=== PATIENT | female | born 1950 | race Caucasian/White ===

== ENCOUNTER → 2017-01-01 | Outpatient (CLI) | payer MEDICARE ==
--- NOTE | 2017-01-01 12:19 | MM ---
Reason for exam: follow-up at short interval from prior study. Last mammogram was performed 8 months ago. History: Patient is postmenopausal and has history of breast cancer at age 65. Mastectomy of the right breast, June 30, 2016. Malignant MG stereo VAD BX addl RT of the right breast, June 02, 2016. Malignant MG stereo VAD BX RT of the right breast, June 02, 2016. Cancelled Left US Needle Biopsy of the left breast, March 07, 2010. Benign US left guided VAD of the left breast, July 26, 2009. Benign excisional biopsy of the right breast, 1994. Took hormonal contraceptives for 4 years beginning at age 21. Took estrogen for 7 years beginning at age 47. Physical Findings: Nurse did not find any significant physical abnormalities on exam. MG 3D Diag Mammo W/Cad LT CC and MLO view(s) were taken of the left breast. Prior study comparison: April 23, 2016, right breast MG 3d work up w/cad RT. April 14, 2016, bilateral MG 3d screening mammo w/cad. The breast tissue is heterogeneously dense. This may lower the sensitivity of mammography. There is no discrete abnormality. No significant new findings when compared with previous films. These results were verbally communicated with the patient and result sheet given to the patient on 01/01/17. ASSESSMENT: Negative, BI-RAD 1 RECOMMENDATION: Follow-up diagnostic mammogram of the left breast in 1 year.
== END | disposition home or self-care (01) ==
LOC: RADMAMWWP 10:31
PROVIDERS: ATTEND Surgery
DX: C50.911 Malignant neoplasm of unspecified site of right female breast (principal)
CPT/HCPCS: G0206; G0279

== ENCOUNTER 2017-01-05 07:18 | Day surgery (SDC) | payer MEDICARE ==
[2017-01-04 08:49] VITALS: BMI 33.6
[~2017-01-05 07:18] MED LIST: DEXAMETHASONE SOD PHOSPHATE 10 MG/ML 1 ML VIAL IV ONE; HEPARIN SODIUM,PORCINE 5,000 UNIT/ML 1 ML VIAL SQ ONE; HYDROmorphone 1 MG/ML 1 ML SYRINGE IVP PRN; LACTATED RINGERS 1,000 ML IV SCH; MIDAZOLAM 2 MG/2 ML VIAL IV PRN; Pre Op ABX Message 1 EACH MISC MISCELLANE ONE
[2017-01-05] MEDS: ONDANSETRON 4 MG/2 ML VIAL IVP ONE ×2 (08:02→12:52)
[2017-01-05] MEDS ORDERED: SCOPOLAMINE 1.5MG/72HR PATCH TRANSDERM ONE (08:02)
[2017-01-05] MEDS ORDERED: HEPARIN SODIUM,PORCINE 5,000 UNIT/ML 1 ML VIAL SQ ONE (08:05)
--- NOTE | 2017-01-05 08:08 | P.PN ---
Progress Note - Text Patient had repeat left breast mammogram which reportedly was benign. This was performed last week 01/01/2017.
[2017-01-05] MEDS ORDERED: KETOROLAC 30 MG/ML 1 ML VIAL ONE (09:05)
[2017-01-05] MEDS ORDERED: NEOSTIGMINE 1 MG/ML 10 ML VIAL ONE (09:05)
[2017-01-05] MEDS ORDERED: fentaNYL (PF) 50 MCG/ML 2 ML AMP ONE (09:05)
[2017-01-05] MEDS ORDERED: PROPOFOL 10 MG/ML 20 ML VIAL IV ONE (09:05)
[2017-01-05] MEDS ORDERED: LIDOCAINE 1% INJ 10MG/ML (20 ML MDV) ONE (09:05)
[2017-01-05] MEDS ORDERED: ONDANSETRON 4 MG/2 ML VIAL ONE (09:05)
[2017-01-05] MEDS ORDERED: GLYCOPYRROLATE 0.2 MG/ML 2 ML VIAL ONE (09:05)
[2017-01-05] MEDS ORDERED: KETAMINE 10 MG/ML 20 ML VIAL ONE (09:05)
[2017-01-05] MEDS ORDERED: MIDAZOLAM 2 MG/2 ML VIAL ONE (09:05)
[2017-01-05] MEDS ORDERED: SUCCINYLCHOLINE CHLORIDE 100 MG/5 ML SYR IV ONE (09:05)
[2017-01-05] MEDS ORDERED: ePHEDrine 50 MG/ML 1 ML AMP ONE (09:05)
[2017-01-05] MEDS ORDERED: ACETAMINOPHEN IV (For NPO) 1,000 MG/100 ML VIAL ONE (09:05)
[2017-01-05] MEDS ORDERED: diphenhydrAMINE 50 MG/ML 1 ML VIAL ONE (09:05)
[2017-01-05] MEDS ORDERED: ROCURONIUM BROMIDE 10 MG/ML 10 ML VIAL IV ONE (09:05)
[2017-01-05] MEDS ORDERED: SODIUM CHLORIDE 0.9% 50 ML with ceFAZolin 2,000 MG IV ONE ×2 (09:25)
[2017-01-05] MEDS ORDERED: LACTATED RINGERS 1,000 ML IV ONE ×2 (09:25→10:45)
[2017-01-05] MEDS ORDERED: NALOXONE 0.4 MG/ML 1 ML VIAL IV PRN (10:28)
[2017-01-05] MEDS ORDERED: ONDANSETRON 4 MG/2 ML VIAL IVP PRN (10:28)
[2017-01-05] MEDS ORDERED: KETOROLAC 30 MG/ML 1 ML VIAL IVP PRN (10:28)
--- NOTE | 2017-01-05 10:28 | P.OP ---
Date of Procedure: 01/05/17 Preoperative Diagnosis: Severe fibrocystic disease left breast right breast cancer Postoperative Diagnosis: Same Procedure(s) Performed: Prophylactic left breast mastectomy and reconstruction Implants: Anesthesia: ROXANNA Surgeon: Alejandra Dennis Estimated Blood Loss (ml): 25 IV fluids (ml): 1,600 Pathology: other (Left breast) Condition: stable Disposition: PACU Indications for Procedure: Patient with severe fibrocystic disease left breast patient right breast cancers status post prior right mastectomy Operative Findings: Left breast is dense tissue Description of Procedure: Patient was taken to the operating room and following induction of general anesthesia the left breast and chest was prepped and draped in a sterile fashion. A circumareolar incision was made. This was carried through the skin and subcutaneous tissue down to the breast tissue. Circumferential dissection was performed removing the breast tissue from the skin. This was carried down to the pectoralis major muscle superiorly andcarried down the chest wall medially and inferiorly. The lateral dissection was carried down to the area of the axilla. Following this the breast was taken from medial to lateral off the muscle of the chest wall. Hemostasis was attained using electrocautery device and the LigaSure. The tissues were dissected laterally using the LigaSure from the area of the axilla. After assured that hemostasis was attained the wound was well irrigated. All instrument and sponge counts were correct at the end of this procedure. Dr. Cardenas then entered for reconstruction of the breast..
[2017-01-05] MEDS ORDERED: LACTATED RINGERS 1,000 ML IV SCH (10:45)
[2017-01-05] MEDS: fentaNYL (PF) 50 MCG/ML 20 ML VIAL IVP PRN ×2 (11:51→12:04)
[2017-01-05] MEDS: MORPHINE SULFATE 4 MG/ML SYRINGE IVP ONE ×4 (12:34→12:42)
[2017-01-05] MEDS: MORPHINE SULFATE 10 MG/ML SYRINGE IVP ONE ×3 (12:56→13:23)
[2017-01-05] MEDS ORDERED: ACETAMINOPHEN IV (For NPO) 1,000 MG in EMPTY BAG 1 BAG IVPB ONE (13:00)
--- NOTE | 2017-01-05 14:06 | OP ---
DATE OF SERVICE: SURGEON: YUNI BENNETT MD KINDERGARTEN INSTRUCTIONAL ASSISTANT: PREOPERATIVE DIAGNOSIS: Acquired loss, left breast. POSTOPERATIVE DIAGNOSES: Acquired loss, left breast. OPERATION: 1. Immediate reconstruction left breast following mastectomy with insertion of tissue digital research analyst and subsequent outpatient expansion. 2. Implantation reconstructive graft for left breast reconstruction. ANESTHESIA: ESTIMATED BLOOD LOSS: SPECIMENS REMOVED: COMPLICATIONS: OPERATIVE FINDINGS: OPERATIVE INDICATIONS: The patient is a 66-year-old female who is to undergo prophylactic left mastectomy. She has right breast cancer and has undergone a prior right mastectomy with tissue digital research analyst style reconstruction. The patient desires breast reconstruction for the left side we performed immediately following her mastectomy procedures elected upon a tissue digital research analyst style technique. She understands the potential risks and complications of surgery and has requested I perform the surgery. OPERATIVE PROCEDURE SUMMARY: The patient is seen in presurgical area. Markings made, procedure reviewed, all questions answered. She was transported to the operating room where she was placed in supine position. Following induction of general endotracheal anesthesia, the patient was prepped and draped in the usual fashion. Dr. Dennis and her team proceeded with left simple mastectomy through a circumareolar approach. Once the procedure was completed, I was contacted began my portion of the procedure. The patient was under general endotracheal anesthesia in the supine position. All sponge and needle counts from the prior procedure were correct. There was no active bleeding at the mastectomy site. Irrigation was performed. The pectoralis major muscle was identified where the muscle joined the chest wall in the lateral aspect, loose areolar connective tissue divided with cautery here allowing entering into the potential plane between the pectoralis major and minor muscles, which were bluntly developed. All medial attachment fibers of the pectoralis major muscle to ribs were released with cautery and all inferior attachments were released with cautery. There were several rents or tears within the muscle and it was quite attenuated. Additional muscle tissue was required for reconstructive coverage. Inferior medially, rectus abdominis muscle and fascia, inferior laterally external abdominal oblique muscle and fascia, and laterally serratus anterior muscle and fascia were elevated through this approach. Due to the muscle tears and significant attenuation, SurgiMend was now opened on the field, as this will be required to buttress the reconstructive tissue present. The SurgiMend, soaked at room temperature saline. The cavity was irrigated. Hemostasis was excellent. The cavity was sized. A tissue digital research analyst opened on the field after changing gloves. The tissue expanders [place] model, reference # XEZR001II, serial #[id number]. The device was only handled by the surgeon. All air was extracted from the device; 50 mL of 0.9 normal saline instilled and the digital research analyst was maintained in saline bath while the SurgiMend was now inset in an inferior sling orientation, for the reconstruction. Medially and inferiorly the SurgiMend was inset to the muscle cuff using interrupted and short running 3-0 Vicryl. The digital research analyst was now inserted deep to the muscle flap tissue. SurgiMend advanced over the inferior aspect of the digital research analyst deep to the muscle and the muscle advanced in a caudad fashion providing complete coverage and buttress and this also buttressed the attenuated muscle present. All the SurgiMend and the muscle flaps were then inset to each other where needed using interrupted and short running 3-0 Vicryl. Complete coverage was obtained. Irrigation was performed. Excellent hemostasis present. A #19 round Goyo channel drains was opened on the field and inserted in the surgical field, brought through a separate stab incision left anterolateral chest wall and sutured in place with 2-0 Prolene. The drains connected to closed bulb suction. The mastectomy circumareolar incision was now closed in a pursestring fashion using deep dermal 2-0 Prolene suture followed by finer approximation of the epidermal edges with interrupted 4-0 Monocryl. The surgical field was cleansed with saline, dried, and postoperative bandages placed using 4 x 4's, Kerlix gauze secured with 3M Medipore tape. The drain was patent. The patient was then awakened from anesthetic, extubated and transferred to the recovery room in good condition with stable vital signs. There were no complications.
[2017-01-05] MEDS: MORPHINE SULFATE 4 MG/ML SYRINGE IVP PRN ×2 (14:41→19:42)
[2017-01-05] MEDS ORDERED: HYDROcodone/APAP 5-325MG 1 EACH TAB PO PRN (16:57)
[2017-01-05] MEDS: DEXTROSE 5%-0.45% NACL 1,000 ML IV SCH (17:12)
[2017-01-05] MEDS: ceFAZolin 1,000 MG in DEXTROSE/WATER 1 50ML.BAG IVPB SCH ×2 (17:43→23:52)
[2017-01-05] MEDS: FAMOTIDINE 20 MG TAB PO SCH (19:43)
[2017-01-05] MEDS: LISINOPRIL 20 MG TAB PO SCH (20:45)
[2017-01-06] MEDS: HYDROcodone/APAP 5-325MG 1 EACH TAB PO PRN ×5 (01:17→19:04)
[2017-01-06] MEDS: DEXTROSE 5%-0.45% NACL 1,000 ML IV SCH ×3 (05:57→19:07)
[2017-01-06] MEDS: ceFAZolin 1,000 MG in DEXTROSE/WATER 1 50ML.BAG IVPB SCH ×3 (05:57→17:44)
[2017-01-06] MEDS ORDERED: LISINOPRIL 20 MG TAB PO SCH (09:00)
[2017-01-06] MEDS ORDERED: FLECAINIDE 50 MG TAB PO SCH (09:00)
[2017-01-06] MEDS: FAMOTIDINE 20 MG TAB PO SCH ×2 (09:16→20:56)
[2017-01-06] MEDS: LISINOPRIL 20 MG TAB PO SCH ×2 (09:16→20:59)
[2017-01-06] MEDS ORDERED: SODIUM CHLORIDE 0.9% 500 ML IV ONE (09:57)
--- NOTE | 2017-01-06 11:56 | P.PN ---
Subjective Seen and evaluated with the attending patient is postop on January 05 prophylactic left breast mastectomy and reconstruction done. Patient has history of severe fibrocystic disease left breast history of right breast cancer. Patient continues to report having surgical pain at the muscle site involving the left breast. A Celestine-Vasquez drain in the left breast serous drainage noted in the bulb no redness to the breast soft slight surgical tenderness noted Patient states pain medication has been effective for pain control Preop the patient did have a repeat left breast mammogram which was reported as benign this was done on January 01. Objective - Vital Signs Vital signs: Vital Signs Temp 97.0 F L 01/06/17 08:15 Pulse 72 01/06/17 08:15 Resp 16 01/06/17 08:15 BP 108/44 01/06/17 08:15 Pulse Ox 98 01/06/17 08:15 Intake & Output 01/05/17 01/06/17 01/06/17 18:59 06:59 18:59 Intake Total 2980 1200 Output Total 500 30 28 Balance 2480 1170 -28 Weight 86.183 kg Intake: IV 2950 Oral 30 1200 Output: Drainage 50 30 28 Left Chest 50 30 28 Urine 250 Estimated Blood Loss 200 Other: Voiding Method Toilet Toilet # Voids 1 2 - Exam Physical exam 66-year-old female resting in bed pleasant cooperative oriented 3 Lungs essentially clear adequate air movement on room air Heart S1-S2 audible and regular denying chest pain Chest left breast Celestine-Vasquez drain in place soft surgical tenderness noted no redness at surgical site Abdomen soft nontender reports no nausea vomiting Extremities no evidence of edema to the upper or lower extremities Assessment and Plan Plan: Impression Postop to December prophylactic left breast mastectomy with reconstruction due to severe fibrocystic disease History of right breast cancer A recent mammogram 01/01/2017 reported the benign Plan Continue postop surgical care as ordered dressing over surgical site to the left breast Pain control Resume home meds as appropriate DVT and GI prophylaxis The above dictated assessment and findings were discussed with dr mere Anen and the plan of care have been dictated as directed. Sara Sharif nurse practitioner acting as a scribe for dr wilton severino.
--- NOTE | 2017-01-06 13:36 | P.CONS ---
History of Present Illness - Reason for Consult Consult date: 01/06/17 Medical management Requesting physician: Alejandra Dennis - Chief Complaint Post left mastectomy - History of Present Illness This is a 66-year-old female one of my patient with a previous medical history significant for hypertension and hypertensive cardiovascular disease with left ventricular hypertrophy, hyperlipidemia, supraventricular tachycardia, was diagnosed with ductal carcinoma in situ(DCIS) as a routine breast examination with mammography that showed significant calcification that led to the core biopsy ultrasound-guided and that came back positive she is scheduled to go for a skin sparing right mastectomy with reconstruction by Dr. Marito Hester and Dr. Stauffer, this was done in June of this year, patient suddenly had a long conversation with her project specialist oncologist Dr. Sanford and she elected to go for left mastectomy as a prevention for breast cancer, and she underwent a left mastectomy that was done successfully by Dr. Dennis yesterday and we were asked to see the patient for medical management. Patient is sitting up in the bed in no apparent distress, she was feeling a bit dizzy in the morning, her blood pressure was a bit low, we held her lisinopril for the next 24 hours, we will continue with IV fluid resuscitation, monitor the patient very closely for the next 24 hours. Patient has no chest pain, shortness of breath, she has no orthopnea, PND, she has no pleurisy, she has no fever, chills, she has no abdominal pain, nausea, vomiting, or diarrhea. Review of Systems Constitutional: Denies anorexia, Denies chronic headaches, Denies lethargy, Denies malaise, Denies weight gain, Denies weight loss Eyes: denies blurred vision, denies bulging eye, denies decreased vision, denies diplopia, denies discharge Ears: deny: decreased hearing Ears, nose, mouth and throat: Denies dysphagia, Denies neck lump, Denies sore throat Cardiovascular: Reports high blood pressure, Denies chest pain, Denies decreased exercise tolerance, Denies dyspnea on exertion, Denies paroxysmal nocturnal dyspnea, Denies phlebitis, Denies rapid heart beat, Denies shortness of breath Respiratory: Denies congestion, Denies cough, Denies cough with sputum, Denies home oxygen, Denies sleep apnea, Denies snoring, Denies wheezing Gastrointestinal: Denies abdominal pain, Denies bloating, Denies BRBPR, Denies change in bowel habits, Denies excessive gas, Denies melena, Denies nausea, Denies vomiting Genitourinary: Denies dysuria, Denies urgency Menstruation: Reports postmenopausal Musculoskeletal: Denies myalgias Musculoskeletal: absent: ankle pain, ankle stiffness, ankle swelling, elbow pain , elbow stiffness, elbow swelling, foot pain, foot stiffness, foot swelling, hand pain, hand stiffness, hand swelling, hip pain, hip stiffness, hip swelling , knee pain, knee stiffness, knee swelling, shoulder pain, shoulder stiffness, shoulder swelling, wrist pain, wrist stiffness, wrist swelling Integumentary: Denies pruritus, Denies rash Neurological: Denies numbness, Denies weakness Psychiatric: Denies anxiety, Denies depression Endocrine: Denies fatigue, Denies weight change Past Medical History Past Medical History: Cancer, Hypertension Additional Past Medical History / Comment(s): BREAST CANCER, PVC NOT SVT PER PT History of Any Multi-Drug Resistant Organisms: None Reported Past Surgical History: Adenoidectomy, Appendectomy, Breast Surgery, Cholecystectomy, Hysterectomy, Orthopedic Surgery, Tonsillectomy Additional Past Surgical History / Comment(s): COLONOSCOPY. RT BREAST BX. RT KNEE SCOPE, 06-30-16 RT MASECTOMY,SENTINAL NODE /RECONSTRUCTION. CTR-BILAT Past Anesthesia/Blood Transfusion Reactions: Motion Sickness, Postoperative Nausea & Vomiting (PONV) Past Psychological History: Anxiety Additional Psychological History / Comment(s): ANXIOUS REGARDING CURRENT CONDITION. Was living in [place] but has relocated permanently back to [place]. She has been retired. No experience. No animal exposures or recent travels Smoking Status: Former smoker Past Alcohol Use History: Occasional Additional Past Alcohol Use History / Comment(s): STARTED SMOKING AT AGE 17, QUIT 1998, SMOKED 2 PPD Past Drug Use History: None Reported - Past Family History Mother Family Medical History: Coronary Artery Disease (CAD) Additional Family Medical History / Comment(s): FALL-HEAD INJURY Father Family Medical History: Cancer, Diabetes Mellitus Sister(s) Family Medical History: No Reported History Brother(s) Family Medical History: No Reported History Daughter(s) Family Medical History: No Reported History Son(s) Family Medical History: No Reported History Medications and Allergies Home Medications Medication Instructions Recorded Confirmed Type Enalapril [Vasotec] 20 mg PO BID 06/29/16 01/05/17 History Flecainide Acetate [Tambocor] 100 mg PO QAM 06/29/16 01/05/17 History Letrozole [Femara] 2.5 mg PO HS 01/04/17 01/05/17 History Allergies Allergy/AdvReac Type Severity Reaction Status Date / Time adhesive tape AdvReac RASH, SKIN Verified 01/05/17 07:51 TEARS hydromorphone [From Dilaudid] AdvReac VERY DIZZY Verified 01/05/17 07:51 AND CONFUSED neomycin AdvReac MAKES Verified 01/05/17 07:51 WOUND WORSE PER PT Physical Exam Vitals: Vital Signs Temp Pulse Pulse Resp BP Pulse Ox 01/06/17 08:15 97.0 F L 72 16 108/44 98 01/06/17 00:00 16 01/05/17 23:40 98.7 F 64 16 125/72 95 01/05/17 20:30 97.1 F L 77 16 125/50 97 01/05/17 17:10 86 16 118/59 95 01/05/17 16:10 93 16 130/61 94 L 01/05/17 15:29 91 16 126/53 94 L 01/05/17 14:59 94 127/62 97 01/05/17 14:39 95 125/51 97 01/05/17 14:05 89 120/58 97 01/05/17 13:50 96.9 F L 93 16 121/65 97 01/05/17 13:15 82 16 145/63 97 01/05/17 13:00 77 16 155/67 98 01/05/17 12:45 87 16 164/72 98 01/05/17 12:30 91 16 154/67 95 01/05/17 12:15 85 16 158/65 99 Intake and Output 01/05/17 01/06/17 01/06/17 22:59 06:59 14:59 Intake Total 600 600 Output Total 60 28 Balance 540 600 -28 Intake: Oral 600 600 Output: Drainage 60 28 Left Chest 60 28 Other: Voiding Method Toilet # Voids 2 2 Weight 86.183 kg - Constitutional General appearance: no acute distress - EENT Eyes: anicteric sclerae, EOMI, PERRLA, no ptosis, no scleral icterus, normal appearance ENT: hearing grossly normal, NA/AT, normal oropharynx, no thrush Ears: bilateral: normal - Neck Neck: no lymphadenopathy, normal ROM, no rigidity, no stridor, no thyromegaly Carotids: bilateral: upstroke normal Thyroid: bilateral: normal size - Respiratory Respiratory: bilateral: diminished, negative: dullness, rales, rhonchi, wheezing , prolonged expiration, prolonged inspiration - Cardiovascular Rhythm: regular Heart sounds: normal: S1, S2 Abnormal Heart Sounds: no systolic murmur, no rub, no S3 Gallop, no S4 Gallop, no click - Gastrointestinal General gastrointestinal: normal bowel sounds, soft, no splenomegaly, no tenderness, no umbilical hernia, no ventral hernia - Integumentary Integumentary: normal, normal turgor - Neurologic Neurologic: CNII-XII intact - Musculoskeletal Musculoskeletal: gait normal, strength equal bilaterally - Psychiatric Psychiatric: A&O x's 3, appropriate affect, intact judgment & insight Assessment and Plan Plan: Assessment and plan: 1. Post operative day #1 status post a left mastectomy. Patient was instructed by the usage of his symptoms parameter, to reduce the incidence of atelectasis and hospital-acquired pneumonia, continue IV fluid resuscitation for the next 24 hours, continue patient on current pain management as outlined by general surgery. 2. Hypotension. Hold off lisinopril for now. 3. History of breast cancer status post bilateral mastectomies. Resume Letrisol as an outpatient. 4. Hypertension and hypertensive cardiovascular disease. We will hold off lisinopril as to restart that tomorrow morning 40 mg orally twice every day. 5. Cardiac dysrhythmia. Continue Tambocor 100 mg orally once every day. 6. DVT prophylaxis. Continue JEFF hose knee-high and SCD post-rest, continue heparin 5000 units subcutaneously every 12 hours. 7. GI prophylaxis. Continue patient on Pepcid. 8. Thank you Dr. Cecily Hester for allowing me to participate in the care of your patient we will follow the patient along with you.
[2017-01-06] MEDS ORDERED: HEPARIN SODIUM,PORCINE 5,000 UNIT/ML 1 ML VIAL SQ SCH (21:00)
[2017-01-07] MEDS: HYDROcodone/APAP 5-325MG 1 EACH TAB PO PRN ×2 (02:40→07:21)
[2017-01-07 03:27] VITALS: RESP 16
[2017-01-07 06:27] LABS: Basophils % (A) 1 %; CHCM 31.7; Eosinophils # (A) 0.4 k/uL (0-0.7); Eosinophils % (A) 6 %; HCT 36.3 % (34.0-46.0); HDW 2.24; HGB 11.6 gm/dL (11.4-16.0); Luc # (Auto) 0.15; Luc % (Auto) 2; Lymphocytes # (A) 2.7 k/uL (1.0-4.8); Lymphocytes % (A) 35 %; MCH 29.4 pg (25.0-35.0); MCHC 31.9 g/dL (31.0-37.0); Mean Platelet Volume 6.7; Monocytes # (A) 0.4 k/uL (0-1.0); Monocytes % (A) 5 %; Neutrophils % (A) 52 %; RBC 3.94 m/uL (3.80-5.40); RDW 12.8 % (11.5-15.5); WBC 7.6 k/uL (3.8-10.6); WBC (Perox) 7.58
[2017-01-07 06:36] LABS: ALT 24 U/L (9-52); AST 26 U/L (14-36); Alkaline Phosphatase 54 U/L (38-126); Anion Gap 8 mmol/L; Blood Urea Nitrogen 20 mg/dL (7-17); Calcium 8.7 mg/dL (8.4-10.2); Carbon Dioxide 24 mmol/L (22-30); Chloride 107 mmol/L (98-107); Glucose 89 mg/dL (74-99); Magnesium 1.9 mg/dL (1.6-2.3); Non-African American GFR(MDRD) 55 (>60 ml/min/1.73 sqM); Potassium 4.5 mmol/L (3.5-5.1); Sodium 139 mmol/L (137-145); Total Bilirubin 0.3 mg/dL (0.2-1.3); Total Protein 5.5 g/dL (6.3-8.2)
--- NOTE | 2017-01-07 08:40 | P.DS ---
Providers Expected date of discharge: 01/07/17 Attending physician: Alejandra Dennis Consults: 01/05/17 20:17 Consult Physician Routine Consulting Provider: Leno Spangler Consult Reason/Comments: medical management Do you want consulting provider notified?: Yes Primary care physician: Stated None Hospital Course: postop on January 05 prophylactic left breast mastectomy and reconstruction done. Patient has history of severe fibrocystic disease left breast history of right breast cancer. Treated in June 2016 Patient continues to report having surgical pain at the muscle site involving the left breast. A Celestine- Vasquez drain in the left breast serous drainage noted in the bulb no redness to the breast soft slight surgical tenderness noted Patient states pain medication has been effective for pain control Preop the patient did have a repeat left breast mammogram which was reported as benign this was done on January 01. Impression discharge diagnosis Postop to December prophylactic left breast mastectomy with reconstruction due to severe fibrocystic disease History of right breast cancer with a right mastectomy with reconstruction June 2016 A recent mammogram 01/01/2017 reported benign left breast Hypertension essential benign History of cardiac arrhythmias or supraventricular tachycardia on tambor The above dictated assessment and findings were discussed with dr destiney escobar Impression and the plan of care have been dictated as directed. Sara Sharif nurse practitioner acting as a scribe for dr destiney severino Plan - Discharge Summary New Discharge Prescriptions: HYDROcodone/APAP 5-325MG [[place] 5-325] 2 each PO Q4HR PRN #30 tab PRN Reason: Moderate Pain Discharge Medication List Enalapril [Vasotec] 20 mg PO BID 06/29/16 [History] Flecainide Acetate [Tambocor] 100 mg PO QAM 06/29/16 [History] Letrozole [Femara] 2.5 mg PO HS 01/04/17 [History] HYDROcodone/APAP 5-325MG [[place] 5-325] 2 each PO Q4HR PRN #30 tab 01/07/17 [Rx] Follow up Appointment(s)/Referral(s): Alejandra Dennis MD [STAFF PHYSICIAN] - 01/11/17 Bradley Stauffer MD [STAFF PHYSICIAN] - 1 Week Patient Instructions/Handouts: *Surgery [facility] - Scopalamine Patch Instructions Activity/Diet/Wound Care/Special Instructions: Care of Celestine-Vasquez drainage instructions May shower in 24 hours Discharge Disposition: HOME SELF-CARE
[2017-01-07 09:00] VITALS: BP 104/60; PULSE 74; TEMP 97.8
== END 2017-01-07 09:22 | disposition home or self-care (01) ==
LOC: OR 07:18 → 6PED 11:19 → OR 01-07 09:22
PROVIDERS: ATTEND Surgery
DX: Z40.01 Encounter for prophylactic removal of breast (principal); N60.32 Fibrosclerosis of left breast; N60.02 Solitary cyst of left breast; N60.82 Other benign mammary dysplasias of left breast; N60.92 Unspecified benign mammary dysplasia of left breast; N60.22 Fibroadenosis of left breast; Z85.3 Personal history of malignant neoplasm of breast; C50.912 Malignant neoplasm of unspecified site of left female breast; I11.9 Hypertensive heart disease without heart failure; Z87.891 Personal history of nicotine dependence; I49.3 Ventricular premature depolarization; Z79.899 Other long term (current) drug therapy; Z88.8 Allergy status to other drugs, medicaments and biological substances
CPT/HCPCS: 80053; 83735; 85025; 88342; 88307; 88341; 19303; 19357; 15777; C1713; C1763; J2250; J2270 ×2; J1200; J1644 ×2; J1100; J2710; J2405; J2001; J3010 ×2; J1885; J0690 ×2; J0131; J0330; J2704

== ENCOUNTER 2017-05-25 07:39 | Day surgery (SDC) | payer MEDICARE ==
[2017-05-20 11:40] VITALS: BMI 34.0
[~2017-05-25 07:39] MED LIST changes: -HEPARIN SODIUM,PORCINE 5,000 UNIT/ML 1 ML VIAL SQ ONE; -HYDROmorphone 1 MG/ML 1 ML SYRINGE IVP PRN; -MIDAZOLAM 2 MG/2 ML VIAL IV PRN; +ONDANSETRON 4 MG/2 ML VIAL IVP ONE
[2017-05-25] MEDS ORDERED: LIDOCAINE 1% 20 ML VIAL (10MG/ML) FOR IV START INTRADERMA ONE (08:33)
[2017-05-25] MEDS ORDERED: ceFAZolin 2 GM in SODIUM CHLORIDE 0.9% 100 ML IVPB STA (09:08)
[2017-05-25] MEDS ORDERED: MIDAZOLAM 2 MG/2 ML VIAL ONE (09:18)
[2017-05-25] MEDS ORDERED: LIDOCAINE 1% INJ 10MG/ML (20 ML MDV) ONE (09:18)
[2017-05-25] MEDS ORDERED: SUCCINYLCHOLINE CHLORIDE VIAL 200 MG/10 ML VIAL IV ONE (09:18)
[2017-05-25] MEDS ORDERED: GLYCOPYRROLATE 0.2 MG/ML 2 ML VIAL ONE (09:18)
[2017-05-25] MEDS ORDERED: NEOSTIGMINE 1 MG/ML 10 ML VIAL ONE (09:18)
[2017-05-25] MEDS ORDERED: PROPOFOL 10 MG/ML 20 ML VIAL IV ONE (09:18)
[2017-05-25] MEDS ORDERED: PHENYLEPHRINE-0.9% NACL SYG 1 MG/10 ML SYRINGE ONE (09:18)
[2017-05-25] MEDS ORDERED: fentaNYL (PF) 50 MCG/ML 2 ML AMP ONE (09:18)
[2017-05-25] MEDS ORDERED: ePHEDrine SULFATE/0.9% NACL/PF 50 MG/5 ML SYRINGE IV ONE (09:18)
[2017-05-25] MEDS ORDERED: VECURONIUM 10 MG VIAL IV ONE (09:18)
[2017-05-25] MEDS ORDERED: LACTATED RINGERS 1,000 ML IV ONE ×2 (10:05)
[2017-05-25 11:38] VITALS: TEMP 97
[2017-05-25] MEDS: MORPHINE SULFATE 10 MG/ML SYRINGE IVP ONE ×6 (11:43→12:40)
[2017-05-25] MEDS ORDERED: KETOROLAC 30 MG/ML 1 ML VIAL IVP ONE ×2 (12:43)
[2017-05-25] MEDS ORDERED: diphenhydrAMINE 50 MG/ML 1 ML VIAL IVP ONE (12:45)
[2017-05-25] MEDS ORDERED: MIDAZOLAM 2 MG/2 ML VIAL IVP ONE (13:15)
[2017-05-25 13:24] VITALS: RESP 18
[2017-05-25 14:19] VITALS: BP 102/60; PULSE 90
--- NOTE | 2017-05-25 22:48 | OP ---
OPERATIVE REPORT DATE OF SERVICE: 05/25/2017 PREOPERATIVE DIAGNOSES: 1. Acquired loss, right and left breast. 2. Personal history of breast cancer. 3. Personal history of bilateral mastectomy. 4. Acquired loss right and left breast inframammary folds. 5. Acquired deformity, right and left reconstructed breast. POSTOPERATIVE DIAGNOSES: 1. Acquired loss, right and left breast. 2. Personal history of breast cancer. 3. Personal history of bilateral mastectomy. 4. Acquired loss, right and left breast inframammary folds. 5. Acquired deformity of right and left reconstructed breast. OPERATIVE PROCEDURES: 1. Replace right breast tissue newspaper correspondent with silicone breast implant for right breast reconstruction. 2. Revision right reconstructed breast. 3. Replace left breast tissue newspaper correspondent with silicone breast implant for left breast reconstruction. 4. Revision of left reconstructed breast. 5. Reconstruction of right and left inframammary folds via local advancement flap, 86 square cm. 6. Implantation of reconstructive graft for right and left breast reconstruction. OPERATIVE INDICATIONS: The patient is a 66-year-old female who has undergone bilateral mastectomy for treatment of breast cancer with immediate reconstruction via tissue newspaper correspondent technique. She has completed subsequent outpatient expansion, is returning to surgery today for second stage in her multi-stage breast reconstruction. She has significant acquired deformities and contour irregularities of reconstructive breast including loss of inframammary folds and malpositioning of the folds that are effaced. The expanders demonstrates significant asymmetries as well. The patient understands there are potential risks and complications of all surgery including today's surgery including but not limited to, infection, wound healing problems, hematoma, seroma, asymmetry among others. She has requested I perform the surgery. OPERATIVE PROCEDURE SUMMARY: The patient is seen presurgical area, markings made, procedure reviewed, all questions answered. She was transported to the operating room, where she was placed under general endotracheal anesthesia. She was positioned supine on the operating table. She was prepped and draped in sterile fashion. The incision for the right and left breast reconstructed procedures were diagramed on each side. Starting on the right side, incision made, dividing skin in full-thickness fashion, followed by use of cauterization to divide subcutaneous tissue until reaching the underlying muscle fascial layer. Skin and subcutaneous tissue dissection was then performed just off the muscle fascia to allow for re-draping and released the contour irregularities caused by the prior mastectomy healing and expansion processes. Extensive dissection was required. Once this was completed, irrigation was performed. Hemostasis was excellent. A lower transverse incision was then made through the muscle fascial layer, exposing the newspaper correspondent. A small amount of serous fluid was present in the cavity. The newspaper correspondent was ruptured using a needle and then forcing the Yankauer suction through the needle hole. This allowed for removal of all the saline from the newspaper correspondent. The newspaper correspondent was then removed and discarded. The cavity appeared normal. There was no granulation tissue or exudates. A complete capsulotomy incision was made where the capsule joined the chest wall. Multiple cruciate incisions through the anterior medial surface of the capsule and also inferior surface of the capsule to release the tightness of the structure. Irrigation was performed. Hemostasis was excellent. The patient's right inframammary fold was effaced. The fold was now reconstruction reconstructed by creating skin subcutaneous tissue flap. The flap was elevated through the inferior capsulotomy incision, off the muscle fascia using cauterization scissor dissection. Hemostasis maintained with cautery. The right-sided full flap measured 21 cm transversely by 2 cm vertically. Once created it was advanced in a cephalad fashion, secured to the patient's chest wall. Hypertrophic expansion tissue areas as well as some areas of involved rib. Interrupted 0 Vicryl sutures were used to create a discrete right inframammary fold. Irrigation was performed. Hemostasis was excellent. The cavity was packed open with saline moistened laparotomy pads. Attention was turned toward the left side. The left incision was made as diagrammed using 10 blade scalpel dividing skin full-thickness fashion followed by cauterization, dividing subcutaneous tissue until reaching the muscle flap layer. A small seroma cavity was entered. Serous fluid was present. The cavity brown were removed with cauterization. Dissection then continued to release contour irregularities, causing the prior mastectomy healing and expansion process. Extensive dissection was performed off the muscle flap layer to release these abnormalities and allow for redraping of the skin envelope. Hemostasis maintained with cautery. Irrigation was performed. Hemostasis was excellent. A lower transverse incision was then made through the muscle fascial layer, exposing the newspaper correspondent. The newspaper correspondent on this side was ruptured as well. All fluid removed and the newspaper correspondent removed. The cavity appeared normal. No granulation tissue. No exudates. The cavity was irrigated. A complete capsulotomy incision was made where the capsule joined the chest wall. Multiple cruciate incisions along the superior medial and inferior surface of the capsule but not lateral. This released the tightness of the capsular structure. The left inframammary fold was now reconstructed. Again, skin and subcutaneous tissue flap was developed from tissue inferior to the inframammary fold region. Dissection was performed through the inferior capsulotomy incision using cauterization scissor dissection. Once created, the fold measured 22 cm transversely by 2 cm vertically. It was advanced in a cephalad fashion, secured to the patient's chest wall, hypertrophic expansion tissues and periosteal rib areas where possible. Several interrupted 0 Vicryl sutures were used. Discrete inframammary fold created in symmetrical location to the right side. Irrigation was performed. Hemostasis was excellent on both sides. Temporary breast implant sizer was open on the field. Ultimately 700 mL sizer appeared optimal on the right and left side. This was evaluated with the patient seated up and the incisions temporarily stapled closed. She has returned to supine position. Mily removed, temporary implant sizers removed. The cavities were re-irrigated. Hemostasis was excellent on each side. Gloves were now changed. The right-sided breast implant was placed first. The implant from the [employer]. Smooth round high-profile style 4000 reference #[id number] , serial #[id number]. The device was maintained in its container and irrigated with saline, only handled by the surgeon, inserted directly in the reconstructive cavity. The muscle fascial layer could not be approximated over the implant without creasing, therefore SurgiMend reconstructive graft was opened on the field. In fact, at this point, 2 pieces were opened as the same situation would be present on the left side. Each piece of SurgiMend measured 10 x 15 cm. Then fenestrated and revitalized in room temperature saline. Once ready, one piece of SurgiMend was used on the right side. The SurgiMend was secured to the inframammary fold area just above where the fold had been set. The implant was protected during this time with a ribbon retractor. Interrupted 3-0 Vicryl sutures were used. The SurgiMend was oriented in inferior sling technique and then overlapped the muscle fascial layer, and secured to the muscle fascial layer using interrupted 3-0 Vicryl. Complete coverage was obtained. Irrigation was performed. Hemostasis was excellent. The incision was closed at this point, approximating deep dermis using inverted interrupted 4-0 Monocryl, followed by closure of superficial dermis and epidermis with running 5-0 Prolene. Attention was turned toward the left side. Hemostasis was excellent. The cavity was irrigated a final time. Gloves were changed. A second breast implant opened on the field from the same company, same style and reference number. The serial number for the left-sided device was [id number]. Device was only handled by surgeon after was irrigated in container with saline. It was inserted directly in the reconstructive cavity. Again as was present on the right side, SurgiMend was required as the muscle flap tissue could not be closed over the implant without creasing. The SurgiMend was secured just above the inframammary fold region using interrupted 3-0 Vicryl and then advanced over the inferior pole of the implant, overlapping the muscle fascial layer, and inset to the muscle fascial tissue using interrupted 3-0 Vicryl. Complete coverage of the implant was obtained on the left side. Irrigation was performed. Hemostasis was excellent. The skin incision was now closed, approximating deep dermis using inverted interrupted 4-0 Monocryl, followed by closure of superficial dermis and epidermis with running 5-0 Prolene. The surgical field was cleansed with saline, dried postop bandages placed using sterile paper tape over suture repairs, followed by ABD pads, secured with paper tape, positioned with size 4 mammary support with additional padding to the lateral aspects. The patient was then awakened from her anesthetic, extubated, and transferred to the recovery room in good condition. Stable vital signs. There were no complications. ESTIMATED BLOOD LOSS: 100 mL. MMODL / IJN: [id number] /
== END 2017-05-25 14:23 | disposition home or self-care (01) ==
LOC: OR 07:39
PROVIDERS: ATTEND Plastic Surgery
DX: Z42.1 Encounter for breast reconstruction following mastectomy (principal); Z85.3 Personal history of malignant neoplasm of breast; I10 Essential (primary) hypertension; I49.3 Ventricular premature depolarization; Z87.891 Personal history of nicotine dependence; Z79.899 Other long term (current) drug therapy; Z88.8 Allergy status to other drugs, medicaments and biological substances
CPT/HCPCS: 11970; 15777; C1789; C1763; J2250; J0330; J1200; J1100; J2710; J2270; J0690; J2405; J2001; J3010; J1885; J2370; J2704

== ENCOUNTER → 2017-06-28 | Outpatient (CLI) | payer MEDICARE ==
--- NOTE | 2017-06-28 14:37 | BD ---
EXAMINATION TYPE: MG DEXA axial skeleton. DATE OF EXAM: 06/28/2017 COMPARISON: NONE CLINICAL HISTORY: Breast CA C50.81,Z03.89 obs for suspected mets Height: 5 FT 2 IN Weight: 187 FRAX RISK QUESTIONS: Alcohol (3 or more units per day): NO Family History (Parent hip fracture): NO Glucocorticoids (More than 3mos): NO (Ex: prednisone, prednisolone, methylprednisolone, dexamethasone, and hydrocortisone). History of Fracture in Adulthood: YES Secondary Osteoporosis: 1. Type 1 Diabetes: NO 2. Hyperthyroidism: NO 3. Menopause before 45: YES 4. Malnutrition: NO 5. Chronic liver disease: NO Rheumatoid Arthritis: NO Current Tobacco Use: NO RISK FACTORS HISTORY OF: Active: NO Postmenopausal woman: PART HYST AGE 34 MEDICATIONS: Additional Medications: ENALAPRIL, LETRAZOLE, HEART MED FOR PVC, Additional History: BREAST CANCER 2016 EXAM MEASUREMENTS: Bone mineral densitometry was performed using the [employer] System. Bone mineral density as measured about the Lumbar spine is: ----- L1-L4(G/cm2): 1.061 T Score Values are as follows: ----- L2: -0.9 ----- L3: -0.1 ----- L4: -1.4 ----- L1-L4: -1.0 Bone mineral density has: DECREASED -0.5% since study of: 2016 Bone mineral density about the R hip (g/cm2): 0.845 Bone mineral density about the L hip (g/cm2): 0.799 T Score values are as follows: -----R Neck: -1.4 -----L Neck: -1.7 -----R Total: -0.9 -----L Total: -1.5 Bone mineral density has: INCREASED 0.8 % since study of: 2016 IMPRESSION: Osteopenia about the lumbar spine and bilateral femoral and acetabular sugars increased fracture risk . NOTE: T-SCORE=SD OF THE YOUNG ADULT MEAN.
== END | disposition home or self-care (01) ==
LOC: RADBDWWP 12:25
PROVIDERS: ATTEND Internal Medicine Hematology & Oncology
DX: M85.89 Other specified disorders of bone density and structure, multiple sites (principal); C50.811 Malignant neoplasm of overlapping sites of right female breast
CPT/HCPCS: 77080

== ENCOUNTER → 2018-05-11 | Outpatient (CLI) | payer MEDICARE ==
--- NOTE | 2018-05-11 11:00 | US ---
EXAMINATION TYPE: US carotid duplex BILAT DATE OF EXAM: 05/11/2018 COMPARISON: NONE CLINICAL HISTORY: N18.2 stage 2 kidney disesase, I65.[address] HTN EXAM MEASUREMENTS: RIGHT: Peak Systolic Velocity (PSV) cm/sec ----- Right CCA: 64.4 ----- Right ICA: 107.3 ----- Right ECA: 95.2 ICA/CCA ratio: 1.7 RIGHT: End Diastole cm/sec ----- Right CCA: 14.9 ----- Right ICA: 41.3 ----- Right ECA: 12.8 LEFT: Peak Systolic Velocity (PSV) cm/sec ----- Left CCA: 59.8 ----- Left ICA: 78.7 ----- Left ECA: 97.4 ICA/CCA ratio: 1.3 LEFT: End Diastole cm/sec ----- Left CCA: 17.1 ----- Left ICA: 23.7 ----- Left ECA: 13.8 VERTEBRALS (direction of flow): Right Vertebral: Antegrade Left Vertebral: Antegrade Rhythm: Normal Mild to moderate plaque noted bilaterally, greater on the left. No evidence of significant stenosis Large plaque Appears to be within the left carotid bulb. IMPRESSION: 1. Atheromatous plaquing left carotid bulb. 2. Intimal thickening and additional plaquing present bilaterally. 3. No suspicious elevated velocities to suggest significant flow-limiting stenosis. Criteria for Assigning % of Stenosis / Diameter reduction (Estimation based on the indirect measurements of the internal carotid artery velocities (ICA PSV). 1. Normal (no stenosis)=ICA PSV < 125 cm/s: ratio < 2.0: ICA EDV<40 cm/s. 2. Less than 50% stenosis=ICA PSV < 125 cm/s: ratio < 2.0: ICA EDV<40 cm/s. 3. 50 to 69% stenosis=ICA PSV of 125 to 230 cm/s: ration 2.0 ? 4.0: ICA EDV 40-100 cm/s. 4. Greater than 70% stenosis to near occlusion= ICA PSV > 230 cm/s: ratio > 4.0: ICA EDV > 100 cm/s. 5. Near occlusion= ICA PSV velocities may be low or undetectable: variable ratio and ICA EDV. 6. Total occlusion=unable to detect flow.
--- NOTE | 2018-05-11 11:03 | US ---
EXAMINATION TYPE: US kidneys/renal and bladder DATE OF EXAM: 05/11/2018 COMPARISON: NONE CLINICAL HISTORY: N18.2 stage 2 kidney disesase, I65.[address] CKD stage II EXAM MEASUREMENTS: Right Kidney: 9.4 x 4.3 x 4.3 cm Left Kidney: 10.5 x 4.4 x 4.4 cm *Technical limitations due to large amount of overlying bowel content Right Kidney: no evidence of hydronephrosis Left Kidney: no evidence of hydronephrosis Bladder: appears wnl as visualized Bilateral Jets seen: no IMPRESSION: 1. Normal retroperitoneal ultrasound.
== END ==
LOC: RADUSWWP 09:46
PROVIDERS: ATTEND Internal Medicine
DX: I65.23 Occlusion and stenosis of bilateral carotid arteries (principal); N18.2 Chronic kidney disease, stage 2 (mild)
CPT/HCPCS: 76770; 93880

== ENCOUNTER → 2019-07-10 | Outpatient (CLI) | payer MEDICARE ==
--- NOTE | 2019-07-11 04:18 | BD ---
EXAMINATION TYPE: Axial Bone Density DATE OF EXAM: 07/10/2019 COMPARISON: 06/28/2017 CLINICAL HISTORY: 68-year-old female postmenopausal screening Height: 63 IN Weight: 195 LBS FRAX RISK QUESTIONS: History of Fracture in Adulthood: YES TOES OFF AND ON AGE 50-60 Secondary Osteoporosis: 3. Menopause before 45: YES PARTIAL HYST AGE 33 RISK FACTORS HISTORY OF: Active: YES Diet low in dairy products/other sources of calcium: YES Postmenopausal woman: PARTIAL HYST AGE 33 MEDICATIONS: Additional Medications: FLECANIDE, LIPITOR, EXEMESTANE, ENAPRIL EXAM MEASUREMENTS: Bone mineral densitometry was performed using the [employer]. Bone mineral density as measured about the Lumbar spine is: ----- L1-L4(G/cm2): 0.954 T Score Values are as follows: ----- L2: -0.8 ----- L3: -2.2 ----- L4: -3.1 ----- L1-L4: -1.9 Bone mineral density has: Decreased -11.1% since study of: 06/28/2017 Bone mineral density about the R hip (g/cm2): 0.821 Bone mineral density about the L hip (g/cm2): 0.777 T Score values are as follows: -----R Neck: -1.6 -----L Neck: -1.9 -----R Total: -1.0 -----L Total: -1.7 Bone mineral density has: Decreased -2.6% since study of: 06/28/2017 IMPRESSION: Osteopenia (T Score between -2.5 and -1). There is slightly increased risk of fracture and the patient may be considered for treatment. Re-Screen 2-5 years. NOTE: T-SCORE=SD OF THE YOUNG ADULT MEAN.
== END | disposition home or self-care (01) ==
LOC: RADBDWWP 07:53
PROVIDERS: ATTEND Internal Medicine
DX: M85.80 Other specified disorders of bone density and structure, unspecified site (principal)
CPT/HCPCS: 77080

== ENCOUNTER → 2021-11-19 | Outpatient (CLI) | payer MEDICARE ==
--- NOTE | 2021-11-19 11:00 | US ---
EXAMINATION TYPE: US carotid duplex BILAT DATE OF EXAM: 11/19/2021 COMPARISON: 2819 CLINICAL HISTORY: I65.23 Carotid Stenosis. PVCs per patient. EXAM MEASUREMENTS: RIGHT: Peak Systolic Velocity (PSV) cm/sec ----- Right CCA: 63.9 ----- Right ICA: 94.3 ----- Right ECA: 77.8 ICA/CCA ratio: 1.5 RIGHT: End Diastole cm/sec ----- Right CCA: 18.4 ----- Right ICA: 33.7 ----- Right ECA: 11.7 LEFT: Peak Systolic Velocity (PSV) cm/sec ----- Left CCA: 79.8 ----- Left ICA: 79.8 ----- Left ECA: 90.2 ICA/CCA ratio: 1.0 LEFT: End Diastole cm/sec ----- Left CCA: 18.9 ----- Left ICA: 25.4 ----- Left ECA: 12.4 VERTEBRALS (direction of flow): Right Vertebral: Antegrade Left Vertebral: Antegrade Rhythm: Normal Moderate to severe peripheral plaque left carotid bulb redemonstrated but velocity measurements and r atios remain within normal limits. Small bilateral thyroid nodules incidentally noted. IMPRESSION: No hemodynamically significant stenosis in either internal carotid artery. No significan t change or progression from 2018 study. Criteria for Assigning % of Stenosis / Diameter reduction (Estimation based on the indirect measurements of the internal carotid artery velocities (ICA PSV). 1. Normal (no stenosis)=ICA PSV < 125 cm/s: ratio < 2.0: ICA EDV<40 cm/s. 2. Less than 50% stenosis=ICA PSV < 125 cm/s: ratio < 2.0: ICA EDV<40 cm/s. 3. 50 to 69% stenosis=ICA PSV of 125 to 230 cm/s: ration 2.0 ? 4.0: ICA EDV 40-100 cm/s. 4. Greater than 70% stenosis to near occlusion= ICA PSV > 230 cm/s: ratio > 4.0: ICA EDV > 100 cm/s. 5. Near occlusion= ICA PSV velocities may be low or undetectable: variable ratio and ICA EDV. 6. Total occlusion=unable to detect flow.
== END | disposition home or self-care (01) ==
LOC: RADUSWWP 08:39
PROVIDERS: ATTEND Internal Medicine
DX: I65.23 Occlusion and stenosis of bilateral carotid arteries (principal)
CPT/HCPCS: 93880

== ENCOUNTER → 2022-01-26 | Outpatient (CLI) | payer MEDICARE ==
--- NOTE | 2022-01-27 01:50 | XR ---
EXAMINATION TYPE: XR chest 2V DATE OF EXAM: 01/26/2022 COMPARISON: X-ray dated 07/02/2016 HISTORY: Bronchitis TECHNIQUE: Frontal and lateral views of the chest are obtained. FINDINGS: Suspected mild COPD changes. Grossly unremarkable lungs otherwise. No sizable pleural effusion or def inite pneumothorax. No cardiomegaly. Aortic atherosclerotic calcifications. Degenerative changes of the thoracic spine. C holecystectomy clips. IMPRESSION: Suspected mild COPD changes, please correlate clinically and with pulmonary function tests.
== END | disposition home or self-care (01) ==
LOC: RADXRMAIN 11:34
PROVIDERS: ATTEND Internal Medicine
DX: J40 Bronchitis, not specified as acute or chronic (principal)
CPT/HCPCS: 71046

== ENCOUNTER → 2022-06-01 | Outpatient (CLI) | payer MEDICARE ==
--- NOTE | 2022-06-01 12:02 | CT ---
EXAMINATION TYPE: CT chest wo con DATE OF EXAM: 06/01/2022 COMPARISON: Chest x-ray 01/26/2022 HISTORY: chronic cough CT DLP: 228.3 mGycm, Automated exposure control for dose reduction was used. CONTRAST: Performed injected with 0 mL of Isovue 300. TECHNIQUE: Axial images were obtained at 5 mm thick sections. Reconstructed images are reviewed on [employer] computer in the coronal plane. FINDINGS: Portion of the thyroid visualized is normal. No suspicious lung nodules or focal infiltrates are present. No enlarged mediastinal or hilar adenopathy is evident. The ascending aorta diameter at the level o f the main pulmonary artery is 2.9 cm. The main pulmonary artery diameter at the bifurcation is 2.[address] sections are obtained through the upper abdomen. Small hiatal hernia is present. Gallbladd er is surgically absent. IMPRESSIONS: 1. No acute pulmonary process.
== END | disposition home or self-care (01) ==
LOC: RADCTMAIN 11:28
PROVIDERS: ATTEND Internal Medicine
DX: J21.9 Acute bronchiolitis, unspecified (principal)
CPT/HCPCS: 71250

== ENCOUNTER 2022-07-20 13:57 | Emergency (ER) | payer MEDICARE ==
[2022-07-20] MEDS ORDERED: IPRATROPIUM-ALBUTEROL 3 ML NEB INHALATION STA (14:55)
--- NOTE | 2022-07-20 14:59 | ED ---
General Adult HPI - General Chief complaint: Shortness of Breath Stated complaint: LUDWIG Time Seen by Provider: 07/20/22 14:42 Source: patient, RN notes reviewed Mode of arrival: wheelchair Limitations: no limitations - History of Present Illness Initial comments: Patient is a pleasant 71-year-old female presenting to the emergency Department with concerns for wheezing. Patient has had 2 episodes over the past year or so. Patient did smoke for 23 years. Patient states previously symptoms resolved with steroid and antibiotic. Patient states symptoms this time have been occurring over the past 1-2 weeks. Patient did test negative for clubbing 19 infection at home. Patient states she did have recent chest x-ray and computed tomography scan. Patient does have cough that is dry nonproductive. No chest congestion. No nasal congestion. No fevers. No chest pain. No leg pain or leg swelling. - Related Data Home Medications Medication Instructions Recorded Confirmed Enalapril [Vasotec] 20 mg PO BID 06/29/16 05/20/17 Flecainide Acetate [Tambocor] 100 mg PO QAM 06/29/16 05/20/17 Letrozole [Femara] 2.5 mg PO HS 01/04/17 05/25/17 Julito/D3/Mag11/Zinc/Sulfide Head Operator/Abhay/Bor 1 each PO DAILY 05/20/17 05/20/17 [Caltrate 600+D Plus Tablet] Cholecalciferol (Vitamin D3) 2,000 unit PO DAILY 05/20/17 05/20/17 [Vitamin D3] Previous Rx's Medication Instructions Recorded Azithromycin [Zithromax Z Pack] 250 mg PO DAILY #6 tab 07/20/22 methylPREDNISolone Dose Pack 24 mg PO DAILY #1 tab 07/20/22 [Medrol Dose Pack] Allergies Allergy/AdvReac Type Severity Reaction Status Date / Time adhesive tape AdvReac RASH, SKIN Verified 07/20/22 14:07 TEARS hydromorphone [From Dilaudid] AdvReac VERY DIZZY Verified 05/20/17 11:33 AND CONFUSED neomycin AdvReac MAKES Verified 07/20/22 14:07 WOUND WORSE PER PT Review of Systems ROS Statement: Those systems with pertinent positive or pertinent negative responses have been documented in the HPI. ROS Other: All systems not noted in ROS Statement are negative. Constitutional: Denies: fever Eyes: Denies: eye pain ENT: Denies: ear pain Respiratory: Reports: cough, dyspnea, wheezes Cardiovascular: Denies: chest pain Endocrine: Denies: fatigue Gastrointestinal: Denies: abdominal pain Genitourinary: Denies: dysuria Musculoskeletal: Denies: back pain Skin: Denies: rash Neurological: Denies: weakness Past Medical History Past Medical History: Cancer, COPD, Hypertension, Renal Disease Additional Past Medical History / Comment(s): RT BREAST CANCER, HX PVC'S cardiac arrythmia History of Any Multi-Drug Resistant Organisms: None Reported Past Surgical History: Adenoidectomy, Appendectomy, Breast Surgery, Cholecystectomy, Heart Catheterization, Hysterectomy, Orthopedic Surgery, Tonsillectomy Additional Past Surgical History / Comment(s): DIANA MASTECTOMY, BILAT CTR,COLONOSCOPY. RT BREAST BX,RT KNEE SCOPE, 06-30-16 RT MASECTOMY,SENTINAL NODE /RECONSTRUCTION, 12/2016 PROPHLACTIC LEFT BREAST MASTECTOMY Past Anesthesia/Blood Transfusion Reactions: Motion Sickness, Postoperative Nausea & Vomiting (PONV) Past Psychological History: No Psychological Hx Reported Past Alcohol Use History: Occasional Past Drug Use History: None Reported - Past Family History Mother Family Medical History: Coronary Artery Disease (CAD), Pulmonary Embolus Additional Family Medical History / Comment(s): FALL-HEAD INJURY Father Family Medical History: Cancer, Diabetes Mellitus Sister(s) Family Medical History: No Reported History Brother(s) Family Medical History: No Reported History Daughter(s) Family Medical History: No Reported History Son(s) Family Medical History: No Reported History General Exam Limitations: no limitations General appearance: alert, in no apparent distress Head exam: Present: normocephalic Eye exam: Present: normal appearance ENT exam: Present: normal oropharynx Neck exam: Present: normal inspection Respiratory exam: Present: wheezes. Absent: respiratory distress Cardiovascular Exam: Present: regular rate, normal rhythm GI/Abdominal exam: Present: soft. Absent: tenderness Extremities exam: Present: normal inspection. Absent: pedal edema, calf ten derness Neurological exam: Present: alert Psychiatric exam: Present: normal affect, normal mood Skin exam: Present: normal color Course Vital Signs 07/20/22 07/20/22 07/20/22 14:03 15:20 15:31 Temperature 98.7 F Pulse Rate 91 80 84 Respiratory 22 Rate Blood Pressure 180/75 O2 Sat by Pulse 96 Oximetry - Reevaluation(s) Reevaluation #1: 07/20/22 14:57 Discussion with patient recommending further testing including chest x-ray and viral swabs. Patient refuses this. Patient requests antibiotic and steroid. Patient is receptive to nebulizer treatment. Medical Decision Making - Medical Decision Making Patient reevaluated and feeling better and requests discharge. Disposition Clinical Impression: Bronchospasm Disposition: HOME SELF-CARE Condition: Stable Instructions (If sedation given, give patient instructions): Bronchospasm (ED) Additional Instructions: Prescriptions have been sent to pharmacy. Please do follow-up with primary care physician in the next couple days for recheck. Return for difficulty breathing, fevers, worsening or changing symptoms or any other concerns. Prescriptions: methylPREDNISolone Dose Pack [Medrol Dose Pack] 24 mg PO DAILY #1 tab Azithromycin [Zithromax Z Pack] 250 mg PO DAILY #6 tab Is patient prescribed a controlled substance at d/c from ED?: No Referrals: Leno Spangler MD [Primary Care Provider] - 1-2 days Time of Disposition: 15:48
[2022-07-20 16:45] VITALS: BP 146/78; PULSE 93; RESP 20; TEMP 99.2
== END 2022-07-20 16:47 | disposition home or self-care (01) ==
LOC: EC 13:57
DX: J98.01 Acute bronchospasm (principal); J44.9 Chronic obstructive pulmonary disease, unspecified; I10 Essential (primary) hypertension; Z88.5 Allergy status to narcotic agent; Z88.1 Allergy status to other antibiotic agents; Z91.09 Other allergy status, other than to drugs and biological substances; Z79.899 Other long term (current) drug therapy
CPT/HCPCS: 94640; 99285

== ENCOUNTER 2023-01-29 18:19 | Emergency (ER) | payer MEDICARE ==
[2023-01-29 18:31] VITALS: TEMP 98.7
[2023-01-29] MEDS ORDERED: SODIUM CHLORIDE 0.9% 500 ML 500 ML IV STA (18:44)
--- NOTE | 2023-01-29 18:44 | ED ---
Arrhythmia/Palpitations HPI - General Chief Complaint: Arrhythmia/Palpitations Stated Complaint: PVC's Time Seen by Provider: 01/29/23 18:40 Source: patient, RN notes reviewed, old records reviewed Mode of arrival: ambulatory Limitations: no limitations - History of Present Illness Initial Comments: This is a 72-year-old female to the emergency department for evaluation palpitations elevated heart rate PVCs. Patient has history of abnormal heart rhythm likely ventricular tachycardia with episodes of near-syncope. Patient states she gets significant PVCs palpitations and symptomatic near-syncope when these events occur. She did take extra flecainide today secondary to symptoms. Patient states symptoms at this time are currently resolved but she is afraid they're going to come back MD Complaint: rapid heart beat, "heart racing", "skipped beats", palpitations -: minutes(s), hour(s) Context: occurred during rest Arrhythmia History: other (PVC) Associated Symptoms: near-syncope Treatments Prior to Arrival: other (flecainide) - Related Data Home Medications Medication Instructions Recorded Confirmed Flecainide Acetate [Tambocor] 100 mg PO BID 06/29/16 01/29/23 Albuterol Inhaler [Ventolin Hfa 2 puff INHALATION RT-Q6H PRN 01/29/23 01/29/23 Inhaler] Atorvastatin [Lipitor] 20 mg PO DAILY 01/29/23 01/29/23 Cetirizine HCl [Zyrtec] 10 mg PO DAILY 01/29/23 01/29/23 Enalapril [Vasotec] 5 mg PO BID 01/29/23 01/29/23 Fluticasone Propion/Salmeterol 1 puff INHALATION RT-BID 01/29/23 01/29/23 [Wixela 500-50 Inhub] Montelukast [Singulair] 10 mg PO HS 01/29/23 01/29/23 Allergies Allergy/AdvReac Type Severity Reaction Status Date / Time adhesive tape AdvReac RASH, SKIN Verified 01/29/23 20:49 TEARS neomycin AdvReac MAKES Verified 01/29/23 20:49 WOUND WORSE PER PT Review of Systems ROS Statement: Those systems with pertinent positive or pertinent negative responses have been documented in the HPI. ROS Other: All systems not noted in ROS Statement are negative. Past Medical History Past Medical History: Asthma, Cancer, COPD, Hypertension, Renal Disease Additional Past Medical History / Comment(s): RT BREAST CANCER, HX PVC'S cardiac arrythmia History of Any Multi-Drug Resistant Organisms: None Reported Past Surgical History: Adenoidectomy, Appendectomy, Breast Surgery, Cholecystectomy, Heart Catheterization, Hysterectomy, Orthopedic Surgery, Tonsillectomy Additional Past Surgical History / Comment(s): DIANA MASTECTOMY, BILAT CTR,COLONOSCOPY. RT BREAST BX,RT KNEE SCOPE, 06-30-16 RT MASECTOMY,SENTINAL NODE /RECONSTRUCTION, 12/2016 PROPHLACTIC LEFT BREAST MASTECTOMY Past Anesthesia/Blood Transfusion Reactions: Motion Sickness, Postoperative Nausea & Vomiting (PONV) Past Psychological History: No Psychological Hx Reported Smoking Status: Never smoker Past Alcohol Use History: Occasional Past Drug Use History: None Reported - Past Family History Mother Family Medical History: Coronary Artery Disease (CAD), Pulmonary Embolus Additional Family Medical History / Comment(s): FALL-HEAD INJURY Father Family Medical History: Cancer, Diabetes Mellitus Sister(s) Family Medical History: No Reported History Brother(s) Family Medical History: No Reported History Daughter(s) Family Medical History: No Reported History Son(s) Family Medical History: No Reported History General Exam Limitations: no limitations General appearance: alert, in no apparent distress, anxious Head exam: Present: atraumatic, normocephalic, normal inspection Eye exam: Present: normal appearance, PERRL, EOMI. Absent: scleral icterus, conjunctival injection, periorbital swelling ENT exam: Present: normal exam, mucous membranes moist Neck exam: Present: normal inspection. Absent: tenderness, meningismus, lymphadenopathy Respiratory exam: Present: normal lung sounds bilaterally. Absent: respiratory distress, wheezes, rales, rhonchi, stridor Cardiovascular Exam: Present: regular rate, normal rhythm, normal heart sounds. Absent: systolic murmur, diastolic murmur, rubs, gallop, clicks GI/Abdominal exam: Present: soft, normal bowel sounds. Absent: distended, tenderness, guarding, rebound, rigid Extremities exam: Present: normal inspection, full ROM, normal capillary refill. Absent: tenderness, pedal edema, joint swelling, calf tenderness Back exam: Present: normal inspection Neurological exam: Present: alert, oriented X3, CN II-XII intact Psychiatric exam: Present: normal affect, normal mood Skin exam: Present: warm, dry, intact, normal color. Absent: rash Course Vital Signs 01/29/23 01/29/23 01/29/23 18:28 19:30 20:30 Temperature 98.7 F Pulse Rate 70 63 56 L Respiratory 18 16 16 Rate Blood Pressure 170/83 142/77 128/63 O2 Sat by Pulse 95 95 94 L Oximetry 01/29/23 01/29/23 21:00 21:30 Temperature Pulse Rate 56 L 56 L Respiratory 18 20 Rate Blood Pressure 128/63 129/64 O2 Sat by Pulse 95 96 Oximetry - Reevaluation(s) Reevaluation #1: 01/29/23 19:31 Medical records reviewed Reevaluation #2: 01/29/23 19:31 Patient has no change in symptoms here in the ER Reevaluation #3: 01/29/23 19:31 Patient informed of results questions answered Reevaluation #4: 01/29/23 19:31 Was pt. sent in by a medical professional or institution? @ -no Did you speak to anyone other than the patient for history? @ -no Did you review nursing and triage notes? @ -agree Were old charts reviewed? @ -no Differential Diagnosis? @ -prior EKG interpreted by me (3pts min.)? @ -yes X-rays interpreted by me (1pt min.)? @ -no CT interpreted by me (1pt min.)? @ -no U/S interpreted by me (1pt. min.)? @ -no What testing was considered but not performed? (CT, X-rays, U/S, labs)? Why? @ -no What meds were considered but not given? Why? @ -no Did you discuss the management of the patient with other professionals? @ -no Did you reconcile home meds? @ -no Was smoking cessation discussed for >3mins.? @ -no Was critical care preformed (if so, how long)? @ -yes31 Were there social determinants of health that impacted care today? How? (Homelessness, low income, unemployed, alcoholism, drug addiction, transportation, low edu. Level, literacy, decrease access to med. care, usp, rehab)? @ -no Was there de-escalation of care discussed even if they declined? (Discuss DNR or withdrawal of care, Hospice)? @ -no What co-morbidities impacted this encounter? (DM, HTN, Smoking, COPD, CAD, Cancer, CVA, Hep., AIDS, mental health diagnosis, sleep apnea, morbid obesity)? @ -none Was patient admitted / discharged? @ -72 female to the emergency department with PVCs, patient has known significant PVCs symptomatic patient feels fine feels well and prefers discharge Discharge Undiagnosed new problem with uncertain prognosis? @ -no Drug Therapy requiring intensive monitoring for toxicity (Heparin, Nitro, Insulin, Cardizem)? @ -no Were any procedures done? @ -no Diagnosis/symptom? @ -PVC, palpitations, ventricular tachycardia Acute, or Chronic, or Acute on Chronic? @ -Acute on chronic Uncomplicated (without systemic symptoms) or Complicated (systemic symptoms)? @ -uncomplicated Side effects of treatment? @ -no Exacerbation, Progression, or Severe Exacerbation] @ -no Poses a threat to life or bodily function? @ -Yes PVCs leading to life-threatening rhythm Reevaluation #5: 01/29/23 19:31 Differential Syncope: Valvular disease, hypertrophic cardiomyopathy, pulmonary embolism, tamponade, tachycardia, bradycardia, RI, hypovolemia, hemorrhage, dissection, anemia, intracranial hemorrhage, seizure, hypoglycemia, carbon monoxide poisoning, this is not meant to be an all-inclusive list. - Consultations Consultation #1: Cardiology regarding treatment of PVCs or DVT, no treatment at this time EKG Findings - EKG Comments: EKG Findings:: EKG is sinus 72 RI 100 QRS 102 QTC 432 - EKG Results: EKG: interpreted by ERMD Medical Decision Making - Medical Decision Making 72 female to the emergency department with PVCs, patient has known significant PVCs symptomatic patient feels fine feels well and prefers discharge - Lab Data Result diagrams: 01/29/23 19:27 01/29/23 19:27 Lab Results 01/29/23 01/29/23 01/29/23 Range/Units 19:27 19:27 19:27 WBC 8.2 (3.8-10.6) k/uL RBC 4.47 (3.80-5.40) m/uL Hgb 13.5 (11.4-16.0) gm/dL Hct 40.3 (34.0-46.0) % MCV 90.3 (80.0-100.0) fL MCH 30.1 (25.0-35.0) pg MCHC 33.4 (31.0-37.0) g/dL RDW 12.7 (11.5-15.5) % Plt Count 173 (150-450) k/uL MPV 7.6 Neutrophils % 47 % Lymphocytes % 39 % Monocytes % 6 % Eosinophils % 6 % Basophils % 0 % Neutrophils # 3.8 (1.3-7.7) k/uL Lymphocytes # 3.2 (1.0-4.8) k/uL Monocytes # 0.5 (0-1.0) k/uL Eosinophils # 0.5 (0-0.7) k/uL Basophils # 0.0 (0-0.2) k/uL Sodium 142 (137-145) mmol/L Potassium 4.1 (3.5-5.1) mmol/L Chloride 105 (98-107) mmol/L Carbon Dioxide 29 (22-30) mmol/L Anion Gap 8 mmol/L BUN 19 H (7-17) mg/dL Creatinine 1.13 H (0.52-1.04) mg/dL Est GFR (CKD-EPI)AfAm 56 (>60 ml/min/1.73 sqM) Est GFR (CKD-EPI)NonAf 49 (>60 ml/min/1.73 sqM) Glucose 98 (74-99) mg/dL Calcium 8.7 (8.4-10.2) mg/dL Phosphorus 3.7 (2.5-4.5) mg/dL Magnesium 1.9 (1.6-2.3) mg/dL Total Bilirubin 0.4 (0.2-1.3) mg/dL AST 36 (14-36) U/L ALT 31 (4-34) U/L Alkaline Phosphatase 72 (38-126) U/L Troponin I <0.012 (0.000-0.034) ng/mL NT-Pro-B Natriuret Pep pg/mL Total Protein 6.1 L (6.3-8.2) g/dL Albumin 3.8 (3.5-5.0) g/dL TSH 2.290 (0.465-4.680) mIU/L 01/29/23 Range/Units 19:27 WBC (3.8-10.6) k/uL RBC (3.80-5.40) m/uL Hgb (11.4-16.0) gm/dL Hct (34.0-46.0) % MCV (80.0-100.0) fL MCH (25.0-35.0) pg MCHC (31.0-37.0) g/dL RDW (11.5-15.5) % Plt Count (150-450) k/uL MPV Neutrophils % % Lymphocytes % % Monocytes % % Eosinophils % % Basophils % % Neutrophils # (1.3-7.7) k/uL Lymphocytes # (1.0-4.8) k/uL Monocytes # (0-1.0) k/uL Eosinophils # (0-0.7) k/uL Basophils # (0-0.2) k/uL Sodium (137-145) mmol/L Potassium (3.5-5.1) mmol/L Chloride (98-107) mmol/L Carbon Dioxide (22-30) mmol/L Anion Gap mmol/L BUN (7-17) mg/dL Creatinine (0.52-1.04) mg/dL Est GFR (CKD-EPI)AfAm (>60 ml/min/1.73 sqM) Est GFR (CKD-EPI)NonAf (>60 ml/min/1.73 sqM) Glucose (74-99) mg/dL Calcium (8.4-10.2) mg/dL Phosphorus (2.5-4.5) mg/dL Magnesium (1.6-2.3) mg/dL Total Bilirubin (0.2-1.3) mg/dL AST (14-36) U/L ALT (4-34) U/L Alkaline Phosphatase (38-126) U/L Troponin I (0.000-0.034) ng/mL NT-Pro-B Natriuret Pep 511 pg/mL Total Protein (6.3-8.2) g/dL Albumin (3.5-5.0) g/dL TSH (0.465-4.680) mIU/L - EKG Data -: EKG Interpreted by Me (EKG shows sinus at 190 QRS 102 QTC 432) When compared to previous EKG there are: changes noted (PVCs on rhythm strip) Critical Care Time Critical Care Time: Yes Total Critical Care Time: 31 Disposition Clinical Impression: Palpitations, Ventricular premature beats, Tachycardia, Sinus tachycardia, Nonsustained ventricular tachycardia Disposition: HOME SELF-CARE Condition: Fair Instructions (If sedation given, give patient instructions): Heart Palpitations (ED) Is patient prescribed a controlled substance at d/c from ED?: No Referrals: Leno Spangler MD [Primary Care Provider] - 1-2 days Time of Disposition: 21:40
[2023-01-29 19:54] LABS: ALT 31 U/L (4-34); AST 36 U/L (14-36); African American GFR (CKD) 56 (>60 ml/min/1.73 sqM); Albumin 3.8 g/dL (3.5-5.0); Alkaline Phosphatase 72 U/L (38-126); Anion Gap 8 mmol/L; Blood Urea Nitrogen 19 mg/dL (7-17); Calcium 8.7 mg/dL (8.4-10.2); Carbon Dioxide 29 mmol/L (22-30); Chloride 105 mmol/L (98-107); Glucose 98 mg/dL (74-99); Magnesium 1.9 mg/dL (1.6-2.3); Non-African American GFR(CKD) 49 (>60 ml/min/1.73 sqM); Phosphorus 3.7 mg/dL (2.5-4.5); Potassium 4.1 mmol/L (3.5-5.1); Sodium 142 mmol/L (137-145); Total Bilirubin 0.4 mg/dL (0.2-1.3); Total Protein 6.1 g/dL (6.3-8.2)
[2023-01-29 20:17] LABS: Basophils % (A) 0 %; Eosinophils # (A) 0.5 k/uL (0-0.7); Eosinophils % (A) 6 %; HCT 40.3 % (34.0-46.0); HGB 13.5 gm/dL (11.4-16.0); Lymphocytes # (A) 3.2 k/uL (1.0-4.8); Lymphocytes % (A) 39 %; MCH 30.1 pg (25.0-35.0); MCHC 33.4 g/dL (31.0-37.0); MCV 90.3 fL (80.0-100.0); Mean Platelet Volume 7.6; Monocytes # (A) 0.5 k/uL (0-1.0); Monocytes % (A) 6 %; Neutrophils # (A) 3.8 k/uL (1.3-7.7); Neutrophils % (A) 47 %; Platelet Count 173 k/uL (150-450); RBC 4.47 m/uL (3.80-5.40); RDW 12.7 % (11.5-15.5); WBC 8.2 k/uL (3.8-10.6)
[2023-01-29 20:33] VITALS: PULSE 56
[2023-01-29 21:52] VITALS: BP 129/64; RESP 20
== END 2023-01-29 21:57 | disposition home or self-care (01) ==
LOC: EC 18:19
DX: R00.2 Palpitations (principal); I49.3 Ventricular premature depolarization; I47.20 Ventricular tachycardia, unspecified; J44.9 Chronic obstructive pulmonary disease, unspecified; I10 Essential (primary) hypertension; Z79.899 Other long term (current) drug therapy; Z79.51 Long term (current) use of inhaled steroids; Z91.09 Other allergy status, other than to drugs and biological substances; Z88.8 Allergy status to other drugs, medicaments and biological substances
CPT/HCPCS: 36415; 80053; 83735; 83880; 84100; 84443; 84484; 85025; 93005; 99285

== ENCOUNTER → 2023-09-02 | Outpatient (CLI) | payer MEDICARE ==
--- NOTE | 2023-09-06 11:45 | XR ---
EXAMINATION TYPE: XR tibia fibula LT DATE OF EXAM: 09/02/2023 2:39 PM CLINICAL INDICATION:Female, 73 years old with history of W19.XXXA FALL IN HOME; [facility] COMPARISON: TECHNIQUE: 4 views left femur, 2 views left tib-fib.. FINDINGS: Osseous mineralization appears within normal limits. There is no lytic/blastic lesion. Minimal left h ip arthropathy without fracture or dislocation. Preserved spherical shape of the femoral head. Mild d egenerative change of the left SI joint. Pelvic phleboliths. Knee incompletely assessed on these view s but there is moderate medial and patellofemoral compartment arthropathy and mild lateral compartmen t arthropathy. No suggestion of acute fracture, dislocation, or sizable joint effusion. The tibia and fibula appear to be intact. Mild degenerative changes in the ankle and hindfoot. Small plantar calca taina spur. Unremarkable soft tissues. IMPRESSION: Left femur and tibia/fibula: * No evidence of acute fracture. * Degenerative changes as above.
--- NOTE | 2023-09-06 11:46 | XR ---
EXAMINATION TYPE: XR femur LT DATE OF EXAM: 09/02/2023 2:39 PM CLINICAL INDICATION:Female, 73 years old with history of W19.XXXA FALL IN HOME; [facility] COMPARISON: FINDINGS: Osseous mineralization appears within normal limits. There is no lytic/blastic lesion. Minimal left h ip arthropathy without fracture or dislocation. Preserved spherical shape of the femoral head. Mild d egenerative change of the left SI joint. Pelvic phleboliths. Knee incompletely assessed on these view s but there is moderate medial and patellofemoral compartment arthropathy and mild lateral compartmen t arthropathy. No suggestion of acute fracture, dislocation, or sizable joint effusion. The tibia and fibula appear to be intact. Mild degenerative changes in the ankle and hindfoot. Small plantar calca taina spur. Unremarkable soft tissues. IMPRESSION: Left femur and tibia/fibula: * No evidence of acute fracture. * Degenerative changes as above.
== END | disposition home or self-care (01) ==
LOC: RADXRMAIN 13:46
PROVIDERS: ATTEND Internal Medicine
DX: M17.12 Unilateral primary osteoarthritis, left knee (principal); M19.172 Post-traumatic osteoarthritis, left ankle and foot; M77.32 Calcaneal spur, left foot; M16.12 Unilateral primary osteoarthritis, left hip; M46.1 Sacroiliitis, not elsewhere classified; I87.8 Other specified disorders of veins; W19.XXXA Unspecified fall, initial encounter

== ENCOUNTER → 2024-01-20 | Outpatient (CLI) | payer MEDICARE ==
--- NOTE | 2024-01-20 13:08 | BD ---
EXAMINATION TYPE: Axial Bone Density DATE OF EXAM: 01/20/2024 CLINICAL HISTORY: 73 years old Female. ICD-10 CODE: I65.23 OCCLUSION AND STENOSIS OF BILATERAL CAROT ID Height: 62 Weight: 189.4 FRAX RISK QUESTIONS: Alcohol (3 or more units per day): no Family History (Parent hip fracture): no Glucocorticoids (More than 3mos): no (Ex: prednisone, prednisolone, methylprednisolone, dexamethasone, and hydrocortisone). History of Fracture in Adulthood: no Secondary Osteoporosis: 1. Type 1 Diabetes: no 2. Hyperthyroidism: no 3. Menopause before 45: no 4. Malnutrition: no 5. Chronic liver disease: no Rheumatoid Arthritis: no Current Tobacco Use: no RISK FACTORS HISTORY OF: Hip Fracture (Right/Left): no Spine Fracture: no History of Wrist Fracture: no Surgery to Spine/Hip(right/left)/Wrist (right/left): no MEDICATIONS: Thyroid Medications: no Osteoporosis Medications: no EXAM MEASUREMENTS: Bone mineral densitometry was performed using the [employer] System. Bone mineral density as measured about the Lumbar spine is: ----- L1-L4(G/cm2): 1.002 T Score Values are as follows: ----- L1: -0.3 ----- L2: -0.9 ----- L3: -2.2 ----- L4: -2.3 ----- L1-L4: -1.5 Z Score Values are as follows: ----- L1: 0.7 ----- L2: 0.1 ----- L3: -1.1 ----- L4: -1.2 ----- L1-L4: -0.5 Bone mineral density has: decreased -1.2 % since study of: 11/24/2021 Bone mineral density about the R hip (g/cm2): 0.811 Bone mineral density about the L hip (g/cm2): 0.747 T Score values are as follows: -----R Neck: -1.9 -----L Neck: -2.0 -----R Total: -1.6 -----L Total: -2.1 Z Score values are as follows: -----R Neck: -0.5 -----L Neck: -0.6 -----R Total: -0.4 -----L Total: -0.9 Bone mineral density has: decreased -2.5 % since study of: 11/24/2021 FRAX%s: The graph provided illustrates a 12.1% chance for a major osteoporotic fx and a 2.8% chance f or the hips probability for fx in 10 years time. IMPRESSION: Osteopenia (T Score between -2.5 and -1). There is slightly increased risk of fracture and the patient may be considered for treatment. Re-Screen 2-5 years. NOTE: T-SCORE=SD OF THE YOUNG ADULT MEAN.
--- NOTE | 2024-01-20 19:29 | US ---
EXAMINATION TYPE: US carotid duplex BILAT DATE OF EXAM: 01/20/2024 COMPARISON: US 11/19/2021 CLINICAL INDICATION: Female, 73 years old with history of I65.23 OCCLUSION AND STENOSIS OF BILATERAL CAROTID; Prior smoker. Hx hypertension, hyperlipidemia. TECHNIQUE: Carotid duplex ultrasound examination. Indirect Doppler criteria was utilized. FINDINGS: EXAM MEASUREMENTS: RIGHT: Peak Systolic Velocity (PSV) cm/sec ----- Right CCA: 77.6 ----- Right ICA: 122.4 ----- Right ECA: 89.7 ICA/CCA ratio: 1.6 RIGHT: End Diastole cm/sec ----- Right CCA: 13.8 ----- Right ICA: 35.7 ----- Right ECA: 0.0 LEFT: Peak Systolic Velocity (PSV) cm/sec ----- Left CCA: 69.4 ----- Left ICA: 116.0 ----- Left ECA: 90.0 ICA/CCA ratio: 1.7 LEFT: End Diastole cm/sec ----- Left CCA: 15.4 ----- Left ICA: 31.8 ----- Left ECA: 8.7 VERTEBRALS (direction of flow): Right Vertebral: Antegrade Left Vertebral: Antegrade Rhythm: Normal INTERNAL REVIEW AND AUDIT COMPLIANCE NOTES: Shadowing plaque seen within left bulb and left proximal ICA, -some narrowing se en left proximal ICA. No elevated velocities at this time. IMPRESSION: Atheromatous plaquing present bilaterally. This is creating mild narrowing approaching 50% based on v elocities bilaterally. Criteria for Assigning % of Stenosis / Diameter reduction (Estimation based on the indirect measurements of the internal carotid artery velocities (ICA PSV). 1. Normal (no stenosis)=ICA PSV < 125 cm/s: ratio < 2.0: ICA EDV<40 cm/s. 2. Less than 50% stenosis=ICA PSV < 125 cm/s: ratio < 2.0: ICA EDV<40 cm/s. 3. 50 to 69% stenosis=ICA PSV of 125 to 230 cm/s: ration 2.0 ? 4.0: ICA EDV 40-100 cm/s. 4. Greater than 70% stenosis to near occlusion= ICA PSV > 230 cm/s: ratio > 4.0: ICA EDV > 100 cm/s. 5. Near occlusion= ICA PSV velocities may be low or undetectable: variable ratio and ICA EDV. 6. Total occlusion=unable to detect flow.
== END | disposition home or self-care (01) ==
LOC: RADUSWWP 07:48
PROVIDERS: ATTEND Internal Medicine
DX: I65.23 Occlusion and stenosis of bilateral carotid arteries (principal); M85.89 Other specified disorders of bone density and structure, multiple sites; I70.90 Unspecified atherosclerosis
CPT/HCPCS: 77080; 93880

== ENCOUNTER → 2024-12-05 | Outpatient (CLI) | payer MEDICARE ==
[2024-12-05 15:05] LABS: Basophils # (A) 0.09 X 10*3/uL (0.00-0.10); Basophils % (A) 1.1 %; Eosinophils # (A) 0.22 X 10*3/uL (0.04-0.35); Eosinophils % (A) 2.8 %; HCT 47.5 % (37.2-46.3); HGB 15.1 g/dL (12.0-15.0); Lymphocytes # (A) 2.22 X 10*3/uL (0.90-5.00); MCH 28.8 pg (27.0-32.0); MCHC 31.8 g/dL (32.0-37.0); MCV 90.6 FL (80.0-97.0); Mean Platelet Volume 9.4 FL (9.5-12.2); Monocytes # (A) 0.63 X 10*3/uL (0.20-1.00); Monocytes % (A) 7.9 %; NRBC Per 100 WBC 0 X 10*3/uL (0.00-0.01); Neutrophils # (A) 4.76 X 10*3/uL (1.80-7.70); Neutrophils % (A) 59.9 %; Platelet Count 233 X 10*3/uL (140-440); RBC 5.24 X 10*6/uL (4.10-5.20); RDW 13.2 % (11.5-14.5); WBC 7.94 X 10*3/uL (4.50-10.00)
[2024-12-05 15:48] LABS: % Iron Saturation 32.65 (12.00-45.00); ALT 38 U/L (8-44); AST 36 U/L (13-35); Albumin 4.4 g/dL (3.8-4.9); Albumin/Globulin Ratio 1.69 Ratio (1.60-3.17); Alkaline Phosphatase 104 U/L (41-126); Blood Urea Nitrogen 16.4 mg/dL (9.0-27.0); Calcium 9.7 mg/dL (8.7-10.3); Carbon Dioxide 25.6 mmol/L (21.6-31.8); Chloride 103 mmol/L (96-109); Globulin 2.6 g/dL (1.6-3.3); Glucose 88 mg/dL (70-110); Iron 111 UG/DL (50-170); Potassium 5.1 mmol/L (3.5-5.5); Sodium 140 mmol/L (135-145); Total Bilirubin 0.7 mg/dL (0.3-1.2); Total Iron Binding Capacity 340 UG/DL (228-460)
[2024-12-05 16:02] LABS: Appearance,Urine Turbid (Clear); Bilirubin,Urine Negative (Negative); Blood,Urine Negative (Negative); Color,Urine Yellow (Yellow); Ketones,Urine Negative (Negative); Nitrite,Urine Negative (Negative); PH, Urine 5.5; Specific Gravity,Urine 1.006 (1.001-1.030); Urobilinogen,Urine 0.2 E.U./DL
[2024-12-05 16:08] LABS: Bacteria,Urine None Seen (None Seen)
[2024-12-05 17:48] LABS: Microalbumin Creatinine Ratio <32 mg/g Cr (0-30)
== END | disposition home or self-care (01) ==
LOC: LABWHC1 09:54
PROVIDERS: ATTEND Internal Medicine
DX: Z00.00 Encounter for general adult medical examination without abnormal findings (principal); I12.9 Hypertensive chronic kidney disease with stage 1 through stage 4 chronic kidney disease, or unspecified chronic kidney disease; E78.2 Mixed hyperlipidemia; E55.9 Vitamin D deficiency, unspecified; N39.0 Urinary tract infection, site not specified; N25.81 Secondary hyperparathyroidism of renal origin; N18.31 Chronic kidney disease, stage 3a
CPT/HCPCS: 36415; 80053; 81001; 82043; 82306; 82570; 82728; 83036; 83540; 83550; 83970; 84443; 85025